=== PATIENT | female | born 1990 | race Caucasian/White ===

== ENCOUNTER → 2020-11-06 08:51 | Outpatient (CLI) | payer OTHER, SELFPAY ==
--- NOTE | 2020-11-06 08:58 | US_ITS ---
PROCEDURE: US ABDOMEN LIMITED CLINICAL INDICATION: HEART BURN Reflux, indigestion, diarrhea after eating COMPARISON: No exams were available for comparison FINDINGS: PANCREAS: Unremarkable. No obvious mass or abnormal fluid collection. No ductal dilatation LIVER: Diffuse increased echogenicity of the liver with poor through transmission of sound consistent with hepatic steatosis. No focal liver lesion demonstrated. There is appropriate direction of blood flow within non dilated portal vein. RIGHT KIDNEY: Unremarkable. Normal size and echogenicity. No hydronephrosis GALLBLADDER: No gallstones, gallbladder wall thickening, pericholecystic fluid, or biliary dilatation. IMPRESSION: Fatty liver otherwise negative Dictated by: Beau Epperson MD 11/06/2020 15:29 Beau Epperson MD in [place] 11/06/2020 15:29
[2021-03-18 18:19] LABS: Basophils # 0.1 K/mm3 (0-0.2); Basophils % 1.1 % (0.1-2.0); Eosinophils # 0.1 K/mm3 (0.0-0.4); Eosinophils % 0.9 % (0.1-12.0); Hematocrit 42.3 % (37.0-47.0); Hemoglobin 14.1 g/dL (12.2-16.2); Lymphocytes # 2.6 K/mm3 (0.7-4.5); Lymphocytes % 28.9 % (10-50); Mean Corpuscular HGB Conc 33.3 g/dL (31.8-35.4); Mean Corpuscular Hemoglobin 26.9 pg (27.0-31.2); Mean Corpuscular Volume 80.9 fl (81-99); Mean Platelet Volume 10.7 fl (7.4-10.4); Monocytes # 0.5 K/mm3 (0.1-1.0); Monocytes % 6.1 % (1.7-9.3); Neutrophils # 5.6 K/mm3 (1.8-7.8); Platelet Count 254 K/mm3 (142-424); Red Blood Count 5.22 M/mm3 (4.20-5.40); Red Cell Distribution Width 13.8 % (11.5-17.5); White Blood Count 8.9 K/mm3 (4.8-10.8)
[2021-03-18 19:20] LABS: Vitamin B12 338 pg/mL (239-931)
== END ==
PROVIDERS: PCP Internal Medicine Adolescent Medicine; Visit Provider Internal Medicine Adolescent Medicine
DX: R12 Heartburn (principal)
CPT/HCPCS: 76705; 82607; 85025

== ENCOUNTER → 2021-03-18 18:08 | Outpatient (CLI) | payer OTHER, SELFPAY | PROVIDERS: Visit Provider Internal Medicine Adolescent Medicine | DX: R53.81 Other malaise (principal) ==

== ENCOUNTER → 2021-03-30 10:10 | Outpatient (CLI) | payer OTHER, SELFPAY | PROVIDERS: PCP Internal Medicine Adolescent Medicine; Visit Provider Nurse Practitioner Family | DX: R06.83 Snoring (principal); E66.9 Obesity, unspecified; G47.30 Sleep apnea, unspecified | CPT/HCPCS: 95806 ==

== ENCOUNTER → 2021-08-05 10:01 | Outpatient (CLI) | payer OTHER, SELFPAY | PROVIDERS: Visit Provider Nurse Practitioner Family | DX: U07.1 COVID-19 (principal); R05.9 Cough, unspecified; R52 Pain, unspecified | CPT/HCPCS: C9803; U0003; U0005 ==

== ENCOUNTER 2021-09-08 03:06 | Emergency (ER) | payer OTHER, SELFPAY ==
[2021-09-08 03:07] VITALS: BP 144/85; PULSE 108; RESP 22; TEMP 36.9; O2SAT 99; BMI 42.1
--- NOTE | 2021-09-08 03:33 | CT_ITS ---
PROCEDURE INFORMATION: Exam: CT Abdomen And Pelvis With Contrast Exam date and time: 09/08/2021 3:33 AM Age: 31 years old Clinical indication: Other: Diarrhea; Abdominal pain TECHNIQUE: Imaging protocol: Computed tomography of the abdomen and pelvis with contrast. Total images: 357 Radiation optimization: All CT scans at this facility use at least one of these dose optimization techniques: automated exposure control; mA and/or kV adjustment per patient size (includes targeted exams where dose is matched to clinical indication); or iterative reconstruction. Contrast material: ISOVUE; Contrast volume: 75 ml; Contrast route: IV; COMPARISON: US ABDOMEN LIMITED 11/06/2020 9:05 AM FINDINGS: Liver: Suspect hepatic steatosis. Hepatomegaly at 21 cm craniocaudal dimension. Gallbladder and bile ducts: Normal. No calcified stones. No ductal dilation. Pancreas: Normal. No ductal dilation. Spleen: 14 cm splenic long axis, consistent with mild splenomegaly. Adrenal glands: Normal. No mass. Kidneys and ureters: Normal. No hydronephrosis. Stomach and bowel: Fluid prominence in the colon could indicate prominent secretions due to infectious/inflammatory enteritis/colitis. Appendix: Normal appendix. Intraperitoneal space: Unremarkable. No free air. No significant fluid collection. Vasculature: Unremarkable. No abdominal aortic aneurysm. Lymph nodes: Unremarkable. No enlarged lymph nodes. Urinary bladder: Unremarkable as visualized. Reproductive: Unremarkable as visualized. Bones/joints: Mild disc bulge at L5/S1. Degeneration related neural foraminal narrowing is present at L5/S1. Soft tissues: Unremarkable. Other findings: Incidental prominent splenule adjacent to the pancreatic tail. IMPRESSION: 1. Fluid prominence in the colon could indicate prominent secretions due to infectious/inflammatory enteritis/colitis. 2. No ureteral stone or hydronephrosis. 3. Normal appendix. 4. Nonspecific hepatosplenomegaly.
[2021-09-08 03:38] LABS: Microscopic, Urine URINE MICROSCOPIC (MICROSCOPIC)
[2021-09-08 03:38] LABS: Basophils # 0.2 K/mm3 (0-0.2); Eosinophils # 0.1 K/mm3 (0.0-0.4); Eosinophils % 0.7 % (0.1-12.0); Hematocrit 45.7 % (37.0-47.0); Hemoglobin 14.8 g/dL (12.2-16.2); Lymphocytes % 5.9 % (10-50); Mean Corpuscular HGB Conc 32.5 g/dL (31.8-35.4); Mean Corpuscular Hemoglobin 27.4 pg (27.0-31.2); Mean Corpuscular Volume 84.3 fl (81-99); Mean Platelet Volume 8.8 fl (7.4-10.4); Monocytes # 0.8 K/mm3 (0.1-1.0); Monocytes % 5.1 % (1.7-9.3); Neutrophils # 14.2 K/mm3 (1.8-7.8); Neutrophils % 87.4 % (37.0-80.0); Platelet Count 245 K/mm3 (142-424); Red Blood Count 5.42 M/mm3 (4.20-5.40); Red Cell Distribution Width 13.9 % (11.5-17.5); White Blood Count 16.2 K/mm3 (4.8-10.8)
[2021-09-08 03:42] VITALS: BP 153/94; PULSE 108; O2SAT 98
[2021-09-08 03:51] LABS: Alanine Aminotransferase 47 U/L (12-78); Albumin Level 5.2 g/dl (3.5-5.0); Albumin/Globulin Ratio 1.6 (1.1-1.8); Alkaline Phosphatase 76 U/L (38-126); Amylase 59 U/L (30-110); Aspartate Amino Transferase 38 U/L (14-36); Bilirubin,Total 0.5 mg/dl (0.2-1.3); Blood Urea Nitrogen 14 mg/dl (7-17); Calcium 9.6 mg/dl (8.4-10.2); Carbon Dioxide 21 mmol/L (22.0-30.0); Chloride 105 mmol/L (98-107); Creatinine Clearance Estimated 104 mL/min (50-200); Estimated Glomerular Filt Rate 84 ml/min (>60); GFR (African American) 102 ML/MIN (>60); Globulin 3.2 g/dL (1.3-3.2); Glucose 139 mg/dl (74-100); Lipase 51 U/L (23-300); Sodium 140 mmol/L (136-145); Total Protein,Serum 8.4 g/dl (6.3-8.2)
[2021-09-08 03:54] LABS: MANUAL DIFFERENTIAL MANUAL DIFFERENTIAL (MANUAL DIFF)
[2021-09-08 03:56] LABS: C-Reactive Protein 3.3 mg/L (0-4)
[2021-09-08 03:57] LABS: Appearance,Urine CLEAR (Clear); Blood, Urine Negative (Negative); Color,Urine YELLOW (Yellow); Glucose,Urine (UA) Negative (Negative); Ketones,Urine Negative (Negative); Leukocyte Esterase,Urine Negative (Negative); Nitrate,Urine Negative (Negative); PH,Urine 5.5 (5.0-8.5); Protein,Urine 2+ (Negative); Specific Gravity, Urine >= 1.030 (1.005-1.030); Urobilinogen,Urine 0.2 EU/dl (0.2)
[2021-09-08 04:00] VITALS: BP 128/76; PULSE 81; O2SAT 95
[2021-09-08 04:03] LABS: Bilirubin,Urine Negative (Negative)
--- NOTE | 2021-09-08 04:07 | HMH.EDNVD ---
ED Disposition Clinical Impression: Enteritis Disposition: Home, Self-Care Condition on Discharge: Good Instructions: DI for Enteritis Additional Instructions: fluids and call pcp fpor follow up Prescriptions: Ondansetron [Zofran 4mg ODT] 4 mg PO TIDP #21 tab Transmission Status: Pending to [facility] Referrals: Malcolm Dowling MD [Primary Care Provider] - - Critical Care Critical Care Time: No Attestation: On 09/08/21, the high probability of a clinically significant, sudden or life threatening deterioration of the following system(s) required my full and direct attention, intervention and personal management. The time I documented below is in addition to time spent performing reported procedures but includes the following listed in this critical care notation. Medical Decision Making - Medical Records Medical records reviewed: Yes: I reviewed the patient's medical records. - Bony Inquiry Pt receiving controlled substance: No Vital Signs: 09/08/21 03:07 Temperature 98.4 F Temperature Source Oral Pulse Rate [Apical] 108 H Respiratory Rate 22 Blood Pressure [Right Arm] 144/85 H Blood Pressure Mean [Right Arm] 104 Blood Pressure Source [Right Arm] Automatic Cuff Blood Pressure Position [Right Arm] Sitting 02 Sat by Pulse Oximetry 99 Oxygen Delivery Method Room Air - Lab Data Lab results reviewed: Yes: I reviewed the patient's lab results. Lab Results 09/08/21 03:20: Urine Color Yellow, Urine Appearance Clear, Urine pH 5.5, Ur Specific [place] >= 1.030, Urine Protein 2+, Urine Glucose (UA) Negative, Urine Ketones Negative, Urine Blood Negative, Urine Nitrate Negative, Urine Bilirubin Negative, Urine Urobilinogen 0.2, Ur Leukocyte Esterase Negative, Urine WBC Occasional, Urine Bacteria 3+, Urine Mucus 1+ 09/08/21 03:21: WBC 16.2 H, RBC 5.42 H, Hgb 14.8, Hct 45.7, MCV 84.3, MCH 27.4, MCHC 32.5, RDW 13.9, Plt Count 245, MPV 8.8, Neut % (Auto) 87.4 H, Lymph % (Auto) 5.9 L, [place] % (Auto) 5.1, Eos % (Auto) 0.7, Baso % (Auto) 1.0, Neut # (Auto) 14.2 H, Lymph # (Auto) 1.0, [place] # (Auto) 0.8, Eos # (Auto) 0.1, Baso # (Auto) 0.2, Total Counted 100, Neutrophils % (Manual) 88 H, Lymphocytes % (Manual) 11, Eosinophils % (Manual) 1, Platelet Estimate Normal, RBC Morphology Normal 09/08/21 03:21: Sodium 140, Potassium 4.0, Chloride 105, Carbon Dioxide 21 L, Anion Gap 18.0 H, BUN 14, Creatinine 0.80, Estimated Creat Clear 104, Estimated GFR 84, Est GFR ( Amer) 102, Glucose 139 H, Calcium 9.6, Total Bilirubin 0.5, AST 38 H, ALT 47, Alkaline Phosphatase 76, C-Reactive Protein 3.3, Total Protein 8.4 H, Albumin 5.2 H, Globulin 3.2, Albumin/Globulin Ratio 1.6, Amylase 59, Lipase 51, HCG, Quant < 2 09/08/21 03:21: ESR 15 09/08/21 03:21: Procalcitonin 0.047 09/08/21 03:21: Urine HCG, Qual Negative Result diagrams: 09/08/21 03:21 09/08/21 03:21 Orders (Tests/Meds): ED MEDICATIONS Generic Name Dose Route Start Last Admin Trade Name Freq PRN Reason Stop Dose Admin Sodium Chloride 1,000 mls @ 999 mls/hr 09/08/21 03:30 09/08/21 03:33 Sod Chlor 0.9% 1000ml Bag IV 09/08/21 04:30 999 mls/hr .Q1H1M TWIN Administration Sodium Chloride 8 ml 09/08/21 03:29 Sodium Chloride 0.9% 10ml Vial IV 10/08/21 03:28 NEEDED PRN dilute pepcid Discontinued Medications Generic Name Dose Route Start Last Admin Trade Name Freq PRN Reason Stop Dose Admin Famotidine 20 mg 09/08/21 03:29 09/08/21 03:33 Famotidine 20mg/2ml Vial IV 09/08/21 03:30 20 mg ONCE ONE Administration Iopamidol 75 ml 09/08/21 04:34 09/08/21 04:36 Iopamidol-370 (76%);100ml Bottle IV 09/08/21 04:35 75 ml ONCE ONE Administration Ketorolac Tromethamine 30 mg 09/08/21 03:28 09/08/21 03:33 Ketorolac 30mg/Ml Vial IV 09/08/21 03:29 30 mg ONCE ONE Administration Metoclopramide HCl 10 mg 09/08/21 03:29 09/08/21 03:33 Metoclopramide Hcl 10mg/2ml Vial IVP 09/08/21 03:30 10 mg ONCE ON
[2021-09-08 04:10] LABS: Procalcitonin 0.047 ng/mL (0.0-2.0)
[2021-09-08 04:11] LABS: HCG,Quantitative < 2 mIU/ml (0-5.42)
[2021-09-08 04:15] LABS: Bacteria,Urine 3+ /lpf; Mucus,Urine 1+ /lpf; WBC,Urine Occasional #/hpf (0-3)
[2021-09-08 04:18] LABS: Erythrocyte Sedimentation Rate 15 mm/hr (0-20)
[2021-09-08 04:20] LABS: Urine Pregnancy, HCG Qual. Negative (Negative)
[2021-09-08 04:21] LABS: Adenovirus F 40/41, stool Not Detected (NotDetected); Astrovirus Not Detected (NotDetected); Campylobacter Not Detected (NotDetected); Clostridium Difficile A/B, PCR Not Detected (NotDetected); Cryptosporidium Not Detected (NotDetected); Cyclospora Cayetanesis Not Detected (NotDetected); Entamoeba histolytica Not Detected (NotDetected); Enteroaggregative E coli Not Detected (NotDetected); Enteropathogenic E coli Not Detected (NotDetected); Enterotoxigenic E coli Not Detected (NotDetected); Giardia lamblia Not Detected (NotDetected); Plesimonas Shigalloides, PCR Not Detected (NotDetected); Rotavirus A Not Detected (NotDetected); Salmonella, PCR Not Detected (NotDetected); Sapovirus Not Detected (NotDetected); Shiga-like toxin E coli Not Detected (NotDetected); Shigella Enterovasive E coli Not Detected (NotDetected); Vibrio Cholerae Not Detected (NotDetected); Vibrio, PCR Not Detected (NotDetected); Yersinia Entercolitica, PCR Not Detected (NotDetected)
--- NOTE | 2021-09-08 04:29 | PC.NURSE ---
pt in ct scan
[2021-09-08 05:03] LABS: Eosinophils % 1 % (0-3); Lymphocytes % 11 % (10-50); Neutrophils % 88 % (42-76); Platelet Estimate Normal; RBC Morphology Normal; Total Cells Counted 100
[2021-09-08 05:41] VITALS: BP 156/90; PULSE 83; RESP 16; TEMP 36.7; O2SAT 97
[2021-09-08 07:16] LABS: Norovirus Detected (NotDetected)
== END 2021-09-08 05:48 | disposition home or self-care (01) ==
PROVIDERS: Emergency Provider Emergency Medicine; PCP Internal Medicine Adolescent Medicine
DX: K52.9 Noninfective gastroenteritis and colitis, unspecified (principal); Z88.0 Allergy status to penicillin
CPT/HCPCS: 74177; 80053; 81001; 81025; 82150; 83690; 84145; 84702; 85007; 85025; 85651; 86140; 87086; 87507; 96365; 96375; 99283; J2405; Q9967

== ENCOUNTER 2021-12-25 20:46 | Emergency (ER) | payer OTHER, SELFPAY ==
[2021-12-25 21:00] VITALS: BP 149/81; PULSE 81; RESP 19; TEMP 36.8; O2SAT 98; BMI 45.1
[2021-12-25 21:15] LABS: Strep Scrn Group A (Rapid) Negative (Negative)
--- NOTE | 2021-12-25 21:15 | HMH.EDUTC ---
[facility] [place] Clinical Impression: Pharyngitis Qualifiers: Pharyngitis/tonsillitis etiology: unspecified etiology Qualified Code(s): J02.9 - Acute pharyngitis, unspecified Disposition: Home, Self-Care Condition on Discharge: Good Instructions: DI for Strep Throat Additional Instructions: Drink plenty of fluids. Take tylenol or ibuprofen for pain or fever. Take the medications as directed. Follow up with your regular doctor. GO TO THE ER FOR ANY WORSENING SYMPTOMS The cough medication (promethazine dm) will make you drowsy, so don't drive or operate heavy machinery after taking it. Prescriptions: Promethazine/Dextromethorphan [Promethazine-Dm Syrup] 5 ml PO Q6HP PRN #240 ml PRN Reason: Cough [facility]: [facility] methylPREDNISolone [Medrol] 4 mg PO DIRECTED 6 Days #21 packet Transmission Status: Sent to [facility] Azithromycin [Z-Felipe 250mg Tab*] 250 mg PO UD DOSE PK #6 tab [facility] Referrals: Malcolm Dowling MD [Primary Care Provider] - Time of Disposition: 21:32 Medical Decision Making - Medical Records Medical records reviewed: No: I reviewed the patient's medical records. - Bony Inquiry Pt receiving controlled substance: No Vital Signs: 12/25/21 21:00 Temperature 98.2 F Temperature Source Oral Pulse Rate [Right Brachial] 81 Respiratory Rate 19 Blood Pressure [Right Arm] 149/81 H Blood Pressure Mean [Right Arm] 103 Blood Pressure Source [Right Arm] Automatic Cuff Blood Pressure Position [Right Arm] Sitting 02 Sat by Pulse Oximetry 98 Oxygen Delivery Method Room Air - Lab Data Lab results reviewed: Yes: I reviewed the patient's lab results. Lab Results 12/25/21 20:59: Group A Strep Rapid Negative Orders (Tests/Meds): ORDERS Category Date Time Status Strep Screen Confirmation Stat Micro 12/25/21 20:59 Received [facility] [place] HPI - General Stated complaint: strep test sore throat Time Seen by Provider: 12/25/21 21:15 Mode of Arrival: Ambulatory Source of Information: Patient Limitations: No Limitations Description of Symptoms (Recalled from Triage Doc. by RN): PATIENT C/O SORE THROAT X 3 DAYS HEENT Symptoms (Recalled from RN notes): Yes Resp Symptoms (Recalled from RN notes): No Skin Symptoms (Recalled from RN notes): No MS Symptoms (Recalled from RN notes): No Functional Status (Recalled from RN notes): WNL - History of Present Illness Provider Complaint: She c/o sore throat for the past 2 days. She gets strep throat occasionally and she feels like she does when she gets it, so she came in to be checked for strep. She ran a low grade fever yesterday. But she has not had a fever today. She denies any known sick contacts. - Related Data Home Medications Medication Instructions Recorded Confirmed Escitalopram Oxalate [Lexapro] 10 mg PO DAILY 12/25/21 12/25/21 Previous Rx's Medication Instructions Recorded Azithromycin [Z-Felipe 250mg Tab*] 250 mg PO UD DOSE PK #6 tab 12/25/21 Promethazine/Dextromethorphan 5 ml PO Q6HP PRN #240 ml 12/25/21 [Promethazine-Dm Syrup] methylPREDNISolone [Medrol] 4 mg PO DIRECTED 6 Days #21 12/25/21 packet Allergies Allergy/AdvReac Type Severity Reaction Status Date / Time Penicillins [PENICILLINS] Allergy Mild Verified 06/23/19 18:02 - Worker's Comp Is this a Worker's Comp case?: No [facility] History - Hepatitis A Screen Attestation statement:: This patient has been screened for Hepatitis A risk factors. I have reviewed the patient's past medical history: Yes Laterality Cases: Bilateral: Tonsillectomy - Social History Alcohol Intake: never Occupational Status: other ROS Obtained: Yes All systems reviewed & no additional complaints - Constitutional Constitutional: Reports chills, Reports fever(s), Reports poor appetite, Reports malaise - Eyes Eyes: Denies eye discharge Physical Exam - General Gener
[2021-12-25 21:33] VITALS: BP 149/81; PULSE 81; RESP 19; TEMP 36.8; O2SAT 98
== END 2021-12-25 21:35 | disposition home or self-care (01) ==
PROVIDERS: Emergency Provider Nurse Practitioner Family; PCP Internal Medicine Adolescent Medicine
DX: J02.9 Acute pharyngitis, unspecified (principal); Z88.0 Allergy status to penicillin
CPT/HCPCS: 87430; 99212; G0463

== ENCOUNTER → 2022-08-30 15:43 | Outpatient (CLI) | payer OTHER, SELFPAY ==
--- NOTE | 2022-08-30 15:46 | XR_ITS ---
FINAL REPORT CLINICAL HISTORY: RIGHT MEDIAL KNEE PAIN FINDINGS: AP, lateral and oblique views of the right knee were obtained. There is no prior exam for comparison. There is no acute osseous abnormality of the right knee. The joint space is preserved. The soft tissues are normal. There is no joint effusion. IMPRESSION: No acute osseous abnormality of the right knee. Reviewed, Interpreted and Dictated by Patty Cadena MD Transcribed by Nita Reyes Authenticated and . [facility]
== END ==
PROVIDERS: PCP Internal Medicine Adolescent Medicine; Visit Provider Nurse Practitioner Family
DX: M25.561 Pain in right knee (principal)
CPT/HCPCS: 73562

== ENCOUNTER 2022-09-15 08:01 | Outpatient (RCR) | payer OTHER, SELFPAY ==
--- NOTE | 2022-09-15 09:22 | HMH.PTOPEV ---
PT Outpatient Evaluation Rehab PT Outpatient Evaluation Start: 09/15/22 08:03 Freq: Status: Active Protocol: Document 09/15/22 08:03 PDESEROUX (Rec: 09/15/22 09:20 [email or web address] [id number]) E-signed By Eleazar Silvestre, PT Outpatient Therapy Subjective History Subjective History Pt. is a 32 year old female whom presents to [facility] Out[facility] Services in [place] for the initial evaluation this date( 09/15/22) w/ c/o acute and intermittent RLE knee P!, effusion, and giving out of traumatic onset since the second week of August 2022 after twisting on her RLE knee. Pt. reported noticing some symptoms weeks prior to DOI, however, having an increase of symptom complaint after twisting her knee. Pt. reports initially injuring the RLE knee while playing basketball back in High School . Pt. reports symptoms have progressively improved w/ prescribed medications, resting, and ice + elevation. Pt. reports symptoms worsen w/ initial standing after prolonged sitting, descending stairs, and twisting. Recent diagnostic imaging(radiograph) WNL per pt. report. Pt. denies having steroid injection for current complaint, however, reported having some symptom improvement(intermittent P! instead of constant P!) w/ prescribed steroids. Pt. reports noticing increased jt. effusion over anterolateral compartment, but increased TTP over anteromedial compartment . Pt. denies having any restrictions at this time, reports working at the [employer] which consists of a lot of sitting. Current m
== END 2022-10-14 15:00 | disposition home or self-care (01) ==
LOC: PT 08:01
PROVIDERS: PCP Internal Medicine Adolescent Medicine; Visit Provider Nurse Practitioner Family
DX: M25.561 Pain in right knee (principal)
CPT/HCPCS: 97163

== ENCOUNTER 2024-12-21 13:50 | Outpatient (CLI) | payer OTHER, SELFPAY | END 2024-12-21 23:59 | disposition home or self-care (01) | LOC: LAB.DROPOF 12-24 10:54 | PROVIDERS: PCP Nurse Practitioner Family; Visit Provider Nurse Practitioner Family | DX: N39.0 Urinary tract infection, site not specified (principal) | CPT/HCPCS: 87086; 87088; 87186 ==